=== PATIENT | male | born 2000 | race Caucasian/White ===

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

== ENCOUNTER → 2021-01-18 16:17 | Outpatient (CLI) | payer BC, SELFPAY ==
--- NOTE | 2021-01-18 | XR_ITS ---
PROCEDURE: XR CHEST 2V CLINICAL HISTORY: CHEST PAIN ON BREATHING COMPARISON: No exams were available for comparison FINDINGS: The cardiomediastinal silhouette and pulmonary vascularity are within normal limits. The lungs are clear without infiltrates, suspicious nodules, or pleural effusions. No acute bony abnormalities. IMPRESSION: No acute findings. Dictated by: Mukesh Huynh MD 01/18/2021 18:01 Mukesh Huynh MD in [place] 01/18/2021 18:01
[2021-01-18 18:03] LABS: Erythrocyte Sedimentation Rate 2 mm/hr (0-15)
[2021-01-18 18:57] LABS: Chloride 102 mmol/L (98-107); Potassium 4.5 mmoL/L (3.5-5.1); Sodium 140 mmol/L (136-145)
[2021-01-18 19:00] LABS: Alanine Aminotransferase 12 U/L (12-78); Albumin Level 5.1 g/dl (3.5-5.0); Albumin/Globulin Ratio 1.8 (1.1-1.8); Alkaline Phosphatase 74 U/L (38-126); Anion Gap 14.5 mEq/L (5-15); Aspartate Amino Transferase 20 U/L (17-59); Bilirubin,Total 0.8 mg/dl (0.2-1.3); Blood Urea Nitrogen 17 mg/dl (9-20); Calcium 9.7 mg/dl (8.4-10.2); Carbon Dioxide 28 mmol/L (22.0-30.0); Estimated Glomerular Filt Rate 84 ml/min (>60); GFR (African American) 101 ML/MIN (>60); Globulin 2.8 g/dL (1.3-3.2); Glucose 116 mg/dl (74-100); Total Protein,Serum 7.9 g/dl (6.3-8.2)
[2021-01-18 19:32] LABS: Thyroid Stimulating Hormone 1.61 uIU/mL (0.465-4.68)
== END ==
PROVIDERS: PCP Family Medicine; Visit Provider Family Medicine
DX: R07.1 Chest pain on breathing (principal)
CPT/HCPCS: 71046; 80053; 84443; 85651

== ENCOUNTER → 2021-01-21 12:44 | Outpatient (CLI) | payer BC, SELFPAY ==
--- NOTE | 2021-01-21 12:57 | CA_ITS ---
APPROVED REPORT EXAM: Comprehensive 2D, Doppler, and color-flow Echocardiogram [employer]orship Pastor: Jing Fair RDCS Ht: 5 ft 10 in Wt: 122lbs BSA: 1.69 BP: 125/84 mmHg Indications: CP WITH RESPIRATIONS tds secondary to body habitus 2D Dimensions LVOT 1.61 cm (M/F) 1.5-2.5 M-Mode Dimensions RVDd 2.66 cm (0.9-2.6) LA Diam 2.29 cm (1.9-4.0) LVDd 4.35 cm (3.5-5.7) Ao Diam 2.48 cm (2.0-3.7) LVDs 3.26 cm (3.5-5.7) IVSd 0.69 cm (0.6-1.1) PWd 0.81 cm (0.6-1.1) EF (Teich) 49.90% FS 25.10% EDV (Teich) 85.40 mL ESV (Teich) 42.80 mL LV Diastology E Decel Time 200.00 (160-240 msec) E/A Ratio 1.6 MED E' 15.30 (< 7 cm/sec) E'/MED E' Ratio 4.40 (>14) LAT E' 15.50 (<10 cm/sec) E/LAT E' Ratio 4.34 (>14) Mitral Valve MV E Max Duarte. 67.00 (40-130 cm/s) MV A Velocity 43.00 (40-130 cm/s) E/A Ratio 1.56 MV Decel. Time 200.00 (160-240 ms) MV PHT 59.00 ms Left Ventricle Left atrium normal size, left ventricle is normal size, there is no concentric left ventricular hypertrophy, visually estimated ejection fraction 55% with no regional wall motion abnormality, diastolic parameters are within normal range. Right Ventricle Right atrium and right ventricle are normal size and contractility. Aortic Valve Aortic valve is grossly normal, there is no aortic stenosis or aortic insufficiency. Mitral Valve Mitral valve grossly normal, there is trace mitral regurgitation. Tricuspid Valve Tricuspid valve grossly normal, there is trace tricuspid regurgitation, tricuspid regurgitation jet velocity is inadequate for calculation of the right ventricular systolic pressure. Pulmonic Valve Pulmonic valve is poorly visualized. Great Vessels Aortic root is normal size. Pericardium No significant pericardial effusion noted. Conclusion 1. Normal left ventricular size, preserved left ventricular systolic function, visually estimated ejection fraction 55% with no regional wall motion abnormality, diastolic parameters are within normal range. 2. Trace mitral and tricuspid regurgitation. 3. No significant pericardial effusion noted. Electronically signed by : Morales Nunez, 01/21/2021 13:54:42
== END ==
PROVIDERS: PCP Family Medicine; Visit Provider Family Medicine
DX: R07.1 Chest pain on breathing (principal)
CPT/HCPCS: 93306

== ENCOUNTER → 2022-03-30 15:09 | Outpatient (CLI) | payer BC, SELFPAY ==
[2022-03-30 15:38] LABS: Basophils # 0.1 K/mm3 (0-0.2); Basophils % 1.5 % (0.1-2.0); Eosinophils # 0.1 K/mm3 (0.0-0.4); Eosinophils % 1.3 % (0.1-12.0); Hematocrit 49.8 % (42.0-52.0); Hemoglobin 16.4 g/dL (14.1-18.0); Lymphocytes # 1.1 K/mm3 (0.7-4.5); Lymphocytes % 21.2 % (10-50); Mean Corpuscular Volume 88.1 fl (80-94); Mean Platelet Volume 8.4 fl (7.4-10.4); Monocytes # 0.3 K/mm3 (0.1-1.0); Monocytes % 5.5 % (1.7-9.3); Neutrophils # 3.7 K/mm3 (1.8-7.8); Neutrophils % 70.6 % (37.0-80.0); Platelet Count 231 K/mm3 (142-424); Red Blood Count 5.66 M/mm3 (4.60-6.20); Red Cell Distribution Width 12.9 % (11.5-17.5); White Blood Count 5.3 K/mm3 (4.8-10.8)
[2022-03-30 16:05] LABS: Alanine Aminotransferase 15 U/L (12-78); Albumin/Globulin Ratio 1.9 (1.1-1.8); Alkaline Phosphatase 65 U/L (38-126); Anion Gap 15.4 mEq/L (5-15); Aspartate Amino Transferase 21 U/L (17-59); Bilirubin,Total 1.4 mg/dl (0.2-1.3); Blood Urea Nitrogen 18 mg/dl (9-20); Calcium 9.8 mg/dl (8.4-10.2); Carbon Dioxide 28 mmol/L (22.0-30.0); Chloride 100 mmol/L (98-107); Estimated Glomerular Filt Rate 93 ml/min (>60); GFR (African American) 112 ML/MIN (>60); Globulin 2.7 g/dL (1.3-3.2); Glucose 98 mg/dl (74-100); Potassium 4.4 mmoL/L (3.5-5.1); Sodium 139 mmol/L (136-145); Total Protein,Serum 7.7 g/dl (6.3-8.2)
[2022-03-30 16:11] LABS: C-Reactive Protein 0.4 mg/L (0-4)
[2022-03-30 16:23] LABS: 25-OH Vitamin D, Total < 12.8 ng/mL (30-100)
[2022-03-30 16:37] LABS: Thyroid Stimulating Hormone 0.44 uIU/mL (0.465-4.68)
[2022-03-30 16:41] LABS: Ferritin 148 ng/ml (17.9-464)
[2022-03-30 16:56] LABS: Vitamin B12 290 pg/mL (239-931)
[2022-04-17 13:52] LABS: Antinuclear Antibodies (ANA) NEGATIVE
== END ==
PROVIDERS: PCP Nurse Practitioner Family; Visit Provider Nurse Practitioner Family
DX: G44.52 New daily persistent headache (NDPH) (principal); H53.9 Unspecified visual disturbance; R11.0 Nausea; R42 Dizziness and giddiness
CPT/HCPCS: 36415; 80053; 82306; 82607; 82728; 83036; 84443; 85025; 86038; 86140

== ENCOUNTER → 2022-04-11 13:40 | Outpatient (CLI) | payer BC, SELFPAY ==
--- NOTE | 2022-04-11 13:43 | MR_ITS ---
FINAL REPORT CLINICAL HISTORY: VISUAL CHANGES, LIGHTHEADEDNESS. BRAIN FOG. DIZZINESS, FORGETFULNESS. SYMPTOMS 2 WEEKS. FINDINGS: Multiplanar MR imaging of the brain was performed without contrast. There is motion on some of the images which decreases sensitivity of the exam. There is no evidence of intracranial hemorrhage or mass. The ventricular size is normal. There is no evidence of shift of the midline structures. No abnormal extra-axial fluid collection is identified. The posterior fossa and brainstem have an unremarkable appearance. No area of abnormal restricted diffusion is identified. Normal major vessel vascular flow voids are seen. IMPRESSION: Unremarkable brain with no acute intracranial abnormality. Reviewed, Interpreted and Dictated by Gavin Malone III, MD Transcribed by Kassandra Mclean Authenticated and [facility]
== END ==
PROVIDERS: PCP Nurse Practitioner Family; Visit Provider Nurse Practitioner Family
DX: R51.9 Headache, unspecified (principal); R42 Dizziness and giddiness; H53.9 Unspecified visual disturbance
CPT/HCPCS: 70551

== ENCOUNTER → 2022-05-08 10:55 | Outpatient (CLI) | payer BC, SELFPAY ==
--- NOTE | 2022-05-08 11:09 | XR_ITS ---
FINAL REPORT TECHNIQUE: Chest PA & Lateral CLINICAL HISTORY: vapes, BMI 17 FINDINGS: 2 views of the chest were performed. The heart size is normal. The mediastinum is within normal limits. There is no acute cardiopulmonary process. There are no pleural effusions. There is no pneumothorax. The bony thorax appears intact. IMPRESSION: No acute cardiopulmonary process. Reviewed, Interpreted and Dictated by Portillo Velasco MD Transcribed by Kassandra Mclean Authenticated and [facility]
--- NOTE | 2022-05-15 13:11 | PC.NURSE ---
Spoke with patient today about a HST. He is unsure of his schedule will call me back next week to try and find a day.
== END ==
PROVIDERS: PCP Nurse Practitioner Family; Visit Provider Nurse Practitioner Family
DX: R07.9 Chest pain, unspecified (principal); R00.2 Palpitations; Z68.1 Body mass index [BMI] 19.9 or less, adult; Z72.0 Tobacco use; Z87.891 Personal history of nicotine dependence; Z87.898 Personal history of other specified conditions
CPT/HCPCS: 71046; 93270

== ENCOUNTER → 2022-05-16 15:41 | Outpatient (CLI) | payer BC, SELFPAY ==
--- NOTE | 2022-05-16 15:42 | MR_ITS ---
PROCEDURE INFORMATION: Exam: MRA Head Without Contrast; Arteriography Exam date and time: 05/16/2022 3:48 PM Age: 22 years old Clinical indication: Headache; Additional info: Eval for aneurysm, stenosis, posterior circulation. Migraines x years. Nausea. Dizziness TECHNIQUE: Imaging protocol: Magnetic resonance angiography head without contrast. [id number] (TOF) technique was utilized for this exam. Exam focused on the arteries. COMPARISON: MR HEAD/BRAIN WO CON 04/11/2022 1:44 PM FINDINGS: ANTERIOR CIRCULATION: Right internal carotid artery: Intracranial segment is patent with no significant stenosis. No aneurysm. Right middle cerebral artery: No occlusion or significant stenosis. No aneurysm. Right anterior cerebral artery: No occlusion or significant stenosis. No aneurysm. Left internal carotid artery: Intracranial segment is patent with no significant stenosis. No aneurysm. Left middle cerebral artery: No occlusion or significant stenosis. No aneurysm. Left anterior cerebral artery: No occlusion or significant stenosis. No aneurysm. POSTERIOR CIRCULATION: Right vertebral artery: No occlusion or significant stenosis. No aneurysm. Left vertebral artery: No occlusion or significant stenosis. No aneurysm. Basilar artery: No occlusion or significant stenosis. No aneurysm. Right posterior cerebral artery: No occlusion or significant stenosis. No aneurysm. Left posterior cerebral artery: No occlusion or significant stenosis. No aneurysm. IMPRESSION: No stenosis or occlusion.
== END ==
PROVIDERS: PCP Nurse Practitioner Family; Visit Provider Nurse Practitioner Family
DX: R42 Dizziness and giddiness (principal); R51.9 Headache, unspecified
CPT/HCPCS: 70544

== ENCOUNTER → 2023-02-28 16:56 | Outpatient (CLI) | payer BC, SELFPAY ==
[2023-02-28 18:59] LABS: Vitamin B12 447 pg/mL (239-931)
== END ==
PROVIDERS: PCP Nurse Practitioner Family; Visit Provider Nurse Practitioner Family
DX: E53.8 Deficiency of other specified B group vitamins (principal)
CPT/HCPCS: 82607